=== PATIENT | female | born 1990 | race Caucasian/White ===

== ENCOUNTER 2016-08-03 13:23 | Emergency (ER) | payer BC ==
[~2016-08-03] VITALS: Ht 170.2 cm; Wt 111.4 kg
[~2016-08-03 13:23] MED LIST: OXYC1TAB3 PO
[2016-08-03 13:26] VITALS: TEMP 36.8; Ht 170.2 cm; Wt 111.4 kg
[2016-08-03] MEDS ORDERED: HYDR-5688 PO (14:02)
[2016-08-03] MEDS ORDERED: CLIN300C2 PO (14:02)
--- NOTE | 2016-08-03 14:04 | EMERGENCY ROOM VISIT NOTE ---
ED Visit Note First contact with patient: 13:46 CHIEF COMPLAINT: Toothache. HISTORY OF PRESENT ILLNESS: This is a 25-year-old white female who ambulates into the complaining of dental pain. She reports a progressive dental pain for the last 3 days over the right mandible. The pain is now steady and severe and radiates to the face. She has been using Tylenol and ibuprofen but has had not had relief of her discomfort. Currently she is complaining of pain in the area of tooth . She rates her discomfort 9/10. Her. pain does radiate through the teeth. Her pain worsens with chewing and hot and cold foods. She has not identified any alleviating factors related to the pain. She denies any associated symptoms including fevers , chills, sweats, facial swelling, sore throat, difficulty swallowing, voice changes, drooling. The patient has a history of infection and pain in this tooth. She states that she has not been able to find a dentist that she can afford. REVIEW OF SYSTEMS: As noted above in History of Present Illness. 8 body systems were reviewed with this patient and found to be negative unless noted above otherwise. PMH: . Patient denies CURRENT MEDICATION: . Patient denies ALLERGIES TO MEDICATION: Penicillin SOCIAL HISTORY: The patient lives locally. She is employed PHYSICAL EXAM: Vital Signs: Temperature 36.8C orally General: This is a 25 year-old white female in mild distress due to pain, nontoxic appearing, afebrile and hemodynamically stable. Neurological: Awake, alert and oriented to person, place and time. Answering questions appropriately and following commands. Normal gait. Good hand eye coordination. No focal motor or sensory deficits. Skin: Warm, dry and pink. No soft tissue lesions, rashes, or trauma noted. HEENT: Atraumatic and normocephalic. Oral cavity is moist and pink. Airway is patent. Uvula is midline and no abscesses are seen. Airway is patent. Speech is normal. No drooling. No intraoral trauma is noted. The right upper molar is broken. No abscesses, erythema or edema identified. No cervical or submandibular lymphadenopathy. The patient has had trouble with this tooth in the past. She states she cannot afford to see a dentist. She is afebrile and nontoxic in appearance. She does not have any significant facial swelling. The patient was advised that she must follow-up with a dentist for definitive management. She'll be placed on clindamycin and given a very small prescription for [place]. She should return with any worsening symptoms. Problem List Medical Problems: (1) Back pain Status: Resolved (2) Back pain Status: Resolved (3) Patella-femoral syndrome Status: Chronic (4) Right ankle sprain Status: Resolved Current/Historical Medications Scheduled Clindamycin Hcl (Cleocin), 300 MG PO QID Scheduled PRN Hydrocodone/Acetaminophen 5MG/325MG ([place] 5MG/325MG), 1-2 TABLET PO Q6 PRN for Pain Allergies Coded Allergies: Penicillins (Unverified Allergy, Severe, as child-HIVES, 08/03/16) BEE STING (Verified Allergy, Unknown, ., 08/03/16) Vital Signs Date Time Temp Pulse Resp B/P Pulse Ox O2 Delivery O2 Flow Rate FiO2 08/03/16 14:10 82 149/72 98 08/03/16 13:26 36.8 85 16 150/70 97 Room Air Departure Information Impression Primary Impression: Dental caries Dispostion Home / Self-Care Condition GOOD Prescriptions Hydrocodone/Acetaminophen 5MG/325MG ([place] 5MG/325MG) Tab 1-2 TABLET PO Q6 Y for Pain, #20 TAB For Initial Treatment Prov: Olga Olivares PA-C 08/03/16 Clindamycin Hcl (CLEOCIN) 300 Mg Cap 300 MG PO QID for 7 Days, #28 CAP Prov: Olga Olivares PA-C 08/03/16 Referrals No Doctor, Assigned (PCP) Patient Instructions [facility] Additional Instructions Clindamycin 4 times daily for 10 days.[place] one tablet every 6 hours if needed for worse pain. Do not drink or drive while taking [place] and do not take with Tylenol. Followup with a dentist for definitive management of your tooth. Return with high fevers, worsening pain or swelling.
[2016-08-03 14:10] VITALS: BP 149/72; PULSE 82; O2SAT 98
== END 2016-08-03 14:15 | disposition home or self-care (01) ==
LOC: C.EDB 13:25 → C.EDD 14:15
DX: K02.9 Dental caries, unspecified (principal); Z88.0 Allergy status to penicillin; Z91.030 Bee allergy status

== ENCOUNTER 2016-11-21 11:44 | Emergency (ER) | payer BC ==
[~2016-11-21 11:44] MED LIST changes: +HYDR-5688 PO; -OXYC1TAB3 PO
[2016-11-21 11:49] VITALS: TEMP 37.1; Ht 170.2 cm
--- NOTE | 2016-11-21 12:25 | DIAGNOSTIC IMAGING REPORT ---
RIGHT KNEE 3 VIEWS HISTORY: Knee pain Right COMPARISON: None. FINDINGS: There is no fracture or dislocation. Soft tissues are unremarkable. No radiopaque foreign bodies. No knee effusions. IMPRESSION: No fractures. Electronically signed by: Carlos Jalloh M.D. 11/21/2016 12:23 PM Dictated Date/Time: 11/21/2016 12:22 PM
--- NOTE | 2016-11-21 12:46 | EMERGENCY ROOM VISIT NOTE ---
ED Visit Note First contact with patient: 12:02 CHIEF COMPLAINT: Right knee pain HISTORY OF PRESENT ILLNESS: This 25-year-old female presents the ER with chief complaint of right knee pain. The patient denies any injury to the right knee. The patient does admit that she stands and walks for long hours at work. She is a lead sustainability specialist. The patient states that it hurts to straighten her leg. The patient denies any giving out or locking of the knee. The patient does admit that when she was younger she had patellofemoral syndrome but that was 10 years ago and she has not had any problems since that time. REVIEW OF SYSTEMS: 6 system review was performed and was negative unless stated otherwise in history of present illness. PMH: The patient is healthy; patellofemoral syndrome SOCIAL HISTORY: Patient admits to tobacco use and occasional alcohol use. PHYSICAL EXAM: Vital Signs: Were reviewed Reviewed Nurse's notes. GENERAL: 25- year-old white female appears in no acute distress. MENTAL STATUS: Alert, oriented, and cooperative. RIGHT KNEE: Generalized swelling of the knee. The patient's tenderness palpation over the lateral joint space. She is also tender in the popliteal region. There is no joint effusion. The range of motion is limited secondary to pain. There is no ligamentous instability. The skin is normal and intact. The patient walks with an antalgic gait. EMERGENCY DEPARTMENT COURSE: The patient was evaluated. The patient just took Midol prior to coming to the ER. She drove herself therefore no additional pain medications were given. X-ray of the right knee was ordered and interpreted by the radiologist and myself. DIAGNOSTICS:RIGHT KNEE 3 VIEWS HISTORY: Knee pain Right COMPARISON: None. FINDINGS: There is no fracture or dislocation. Soft tissues are unremarkable. No radiopaque foreign bodies. No knee effusions. IMPRESSION: No fractures. Electronically signed by: Carlos Jalloh M.D. 11/21/2016 12:23 PM Dictated Date/Time: 11/21/2016 12:22 PM The patient was informed of the findings. The patient was placed in Vu wrap. The patient has crutches at home to aid in ambulation. The patient was given a [employer] home pack. The patient was discharged home in stable condition. DIAGNOSIS: Right knee pain DISCHARGE INSTRUCTIONS: Ice and elevation as much as possible over the next 24 hours. Ibuprofen 600 mg every 6 hours with food for pain. Take [place] as needed for more severe pain. Do not drive while taking the [place]. Wear Vu wrap and use crutches to aid in ambulation until evaluated by orthopedics. Call [facility] orthopedics if symptoms are not improving in 2-3 days. If symptoms worsen in the interim, return to ER. Problem List Medical Problems: (1) Back pain Status: Resolved (2) Back pain Status: Resolved (3) Patella-femoral syndrome Status: Chronic (4) Right ankle sprain Status: Resolved Current/Historical Medications No Active Prescriptions or Reported Meds Allergies Coded Allergies: Penicillins (Unverified Allergy, Severe, as child-HIVES, 11/21/16) BEE STING (Verified Allergy, Unknown, ., 11/21/16) Vital Signs Date Time Temp Pulse Resp B/P (MAP) Pulse Ox O2 Delivery O2 Flow Rate FiO2 11/21/16 11:49 37.1 89 20 137/95 98 Room Air Departure Information Prescriptions No Active Prescriptions or Reported Meds Referrals No Doctor, Assigned (PCP) Patient Instructions [facility] [employer]
[2016-11-21] MEDS ORDERED: HYDR-5688 PO (12:48)
[2016-11-21] MEDS ORDERED: NORCO 5/325MG HOME PACK PO ONE (13:00)
[2016-11-21 13:11] VITALS: BP 121/89; PULSE 69; O2SAT 95
== END 2016-11-21 13:13 | disposition home or self-care (01) ==
LOC: C.EDB 11:50 → C.EDD 13:13
DX: M25.561 Pain in right knee (principal); M25.461 Effusion, right knee

== ENCOUNTER 2017-03-07 19:48 | Emergency (ER) | payer BC ==
[~2017-03-07] VITALS: Ht 170.2 cm; Wt 110.1 kg
[2017-03-07 19:50] VITALS: TEMP 37.1; Ht 170.2 cm; Wt 110.1 kg
[2017-03-07] MEDS ORDERED: KETOROLAC TROMETHAMINE 30 MG/ML VIAL IV STA (20:03)
[2017-03-07 20:33] LABS: BASO % 0.4 %; BASO ABS # 0.03 K/uL (0-0.2); COMPLETE YES; EOS % 2.5 %; HEMATOCRIT 45.8 % (37-47); IG% 0.2 %; LYMPH % 24.1 %; LYMPH ABS # 2.03 K/uL (1.2-3.4); MEAN CELL VOLUME 88.4 fL (80-100); MEAN CORPUSCULAR HEMOGLOBIN 30.3 pg (25-34); MEAN CORPUSCULAR HGB CONC 34.3 g/dl (32-36); NEUT % 64.8 %; PLATELET COUNT 211 K/uL (130-400); RED BLOOD COUNT 5.18 M/uL (4.2-5.4); WHITE BLOOD COUNT 8.42 K/uL (4.8-10.8)
[2017-03-07 20:41] LABS: MANUAL MICROSCOPIC REQUIRED? YES; URINE APPEARANCE CLEAR (CLEAR); URINE BILIRUBIN NEG (NEG); URINE COLOR YELLOW; URINE NITRITE NEG (NEG); URINE PH 6.5 (4.5-7.5); UROBILINOGEN NEG (NEG)
[2017-03-07 20:43] LABS: REVIEW REQ? NO
[2017-03-07 20:48] LABS: URINE BACTERIA 1+ (NEG); URINE RBC 0-4 /hpf (0-4); ZZUR CULT IF INDIC CLEAN CATCH YES
--- NOTE | 2017-03-07 20:55 | DIAGNOSTIC IMAGING REPORT ---
ABD/PELVIS WITHOUT FOR STONE CT DOSE: 1690.63 mGy.cm HISTORY: Flank pain left flank pain TECHNIQUE: Multiaxial CT images of the abdomen and pelvis were performed without the use of intravenous and oral contrast according to the standard department stone protocol. A dose lowering technique was utilized adhering to the principles of ALARA. COMPARISON STUDY: None. FINDINGS: Lung bases are clear. Liver spleen and pancreas are unremarkable. Several benign hepatic granulomas are present. There are several benign splenic calcified granulomas. Pancreas is uniform throughout. Kidneys negative for hydronephrosis. The adrenal glands are normal. There is no evidence for an obstructing urinary tract calculus. Bowel pattern is nonobstructive. The appendix is normal. Bladder is midline. Uterus is anteflexed. There is 2.5 cm complex and a partially hemorrhagic left ovarian cyst. There is no significant free fluid within the pelvic cul-de-sac. IMPRESSION: 1. No evidence for an obstructing urinary tract calculus. 2. 2.5 cm partially hemorrhagic and/or slightly complex left ovarian cyst. 3. Otherwise negative study. The above report was generated using voice recognition software. It may contain grammatical, syntax or spelling errors. Electronically signed by: Derek Otoole M.D. 03/07/2017 8:53 PM Dictated Date/Time: 03/07/2017 8:50 PM
[2017-03-07 21:10] LABS: ALT/SGPT 34 U/L (12-78); AST/SGOT 14 U/L (15-37); BLOOD UREA NITROGEN 14 mg/dl (7-18); BUN/CREATININE RATIO 16.4 (10-20); CALCIUM 8.7 mg/dl (8.5-10.1); CARBON DIOXIDE 26 mmol/L (21-32); CHLORIDE 105 mmol/L (98-107); CREATININE 0.84 mg/dl (0.60-1.20); GLUCOSE 90 mg/dl (70-99); SODIUM 139 mmol/L (136-145)
[2017-03-07 21:12] LABS: ALKALINE PHOSPHATASE 62 U/L (45-117)
[2017-03-07] MEDS ORDERED: NITR-5 PO (21:18)
--- NOTE | 2017-03-07 21:19 | EMERGENCY ROOM VISIT NOTE ---
History First contact with patient: 19:55 Chief Complaint: FLANK PAIN Stated Complaint: SEVERE L SIDE AND CHEST PAIN History of Present Illness The patient is a 26 year old female who presents to the Emergency Room with complaints of left flank pain which started 3 days ago. The patient also states that she has to strain in order to urinate but denies any dysuria, frequency or hematuria. The patient denies any vaginal discharge or fever. The patient admits to transient slight nausea but denies any vomiting. The patient denies any history of kidney stones. The patient admits to having a kidney infection in the past. The patient states there is a possibility of . Review of Systems 10 system review was performed and was negative unless stated otherwise history of present illness. Past Medical/Surgical History Medical Problems: (1) Back pain (2) Back pain (3) Patella-femoral syndrome (4) Right ankle sprain Family History Diabetes mellitus FH: cancer Hypertension Lung disease Social History Smoking Status: Current Every Day Smoker Alcohol Use: occasionally Marital Status: single Housing Status: lives with family Occupation Status: employed Current/Historical Medications No Active Prescriptions or Reported Meds Physical Exam Vital Signs Date Time Temp Pulse Resp B/P (MAP) Pulse Ox O2 Delivery O2 Flow Rate FiO2 03/07/17 19:50 37.1 96 20 134/87 96 Room Air Physical Exam GENERAL: 26-year-old white female appears in no acute distress. MENTAL Status: Alert and oriented 3. MOUTH: Mucosa is moist NECK: Supple, no lymphadenopathy noted. No carotid bruits noted. LUNGS: Clear auscultation without wheezes rales or rhonchi. CARDIAC: Regular rate and rhythm without murmur. Pulses is full and equal throughout. BACK: No CVA tenderness noted. ABDOMEN: Positive bowel sounds all 4 quadrants. Soft, mild tenderness palpation in the left flank area and suprapubic region otherwise nontender to palpation without organomegaly or masses. EXTREMITIES: No cyanosis or edema noted. Medical Decision & Procedures ER Provider Diagnostic Interpretation: ABD/PELVIS WITHOUT FOR STONE CT DOSE: 1690.63 mGy.cm HISTORY: Flank pain left flank pain TECHNIQUE: Multiaxial CT images of the abdomen and pelvis were performed without the use of intravenous and oral contrast according to the standard department stone protocol. A dose lowering technique was utilized adhering to the principles of ALARA. COMPARISON STUDY: None. FINDINGS: Lung bases are clear. Liver spleen and pancreas are unremarkable. Several benign hepatic granulomas are present. There are several benign splenic calcified granulomas. Pancreas is uniform throughout. Kidneys negative for hydronephrosis. The adrenal glands are normal. There is no evidence for an obstructing urinary tract calculus. Bowel pattern is nonobstructive. The appendix is normal. Bladder is midline. Uterus is anteflexed. There is 2.5 cm complex and a partially hemorrhagic left ovarian cyst. There is no significant free fluid within the pelvic cul-de-sac. IMPRESSION: 1. No evidence for an obstructing urinary tract calculus. 2. 2.5 cm partially hemorrhagic and/or slightly complex left ovarian cyst. 3. Otherwise negative study. The above report was generated using voice recognition software. It may contain grammatical, syntax or spelling errors. Electronically signed by: Derek Otoole M.D. 03/07/2017 8:53 PM Dictated Date/Time: 03/07/2017 8:50 PM Laboratory Results 03/07/17 20:12 Red Blood Count 5.18, Mean Corpuscular Volume 88.4, Mean Corpuscular Hemoglobin 30.3, Mean Corpuscular Hemoglobin Concent 34.3, Mean Platelet Volume 11.0, Neutrophils (%) (Auto) 64.8, Lymphocytes (%) (Auto) 24.1, Monocytes (%) (Auto) 8.0, Eosinophils (%) (Auto) 2.5, Basophils (%) (Auto) 0.4, Neutrophils # (Auto) 5.46, Lymphocytes # (Auto) 2.03, Monocytes # (Auto) 0.67, Eosinophils # (Auto) 0.21, Basophils # (Auto) 0.03 03/07/17 20:12 Test 03/07/17 20:12 White Blood Count 8.42 K/uL (4.8-10.8) Red Blood Count 5.18 M/uL (4.2-5.4) Hemoglobin 15.7 g/dL (12.0-16.0) Hematocrit 45.8 % (37-47) Mean Corpuscular Volume 88.4 fL (80-100) Mean Corpuscular Hemoglobin 30.3 pg (25-34) Mean Corpuscular Hemoglobin Concent 34.3 g/dl (32-36) Platelet Count 211 K/uL (130-400) Mean Platelet Volume 11.0 fL (7.4-10.4) Neutrophils (%) (Auto) 64.8 % Lymphocytes (%) (Auto) 24.1 % Monocytes (%) (Auto) 8.0 % Eosinophils (%) (Auto) 2.5 % Basophils (%) (Auto) 0.4 % Neutrophils # (Auto) 5.46 K/uL (1.4-6.5) Lymphocytes # (Auto) 2.03 K/uL (1.2-3.4) Monocytes # (Auto) 0.67 K/uL (0.11-0.59) Eosinophils # (Auto) 0.21 K/uL (0-0.5) Basophils # (Auto) 0.03 K/uL (0-0.2) RDW Standard Deviation 44.1 fL (36.4-46.3) RDW Coefficient of Variation 13.6 % (11.5-14.5) Immature Granulocyte % (Auto) 0.2 % Immature Granulocyte # (Auto) 0.02 K/uL (0.00-0.02) Urine Color YELLOW Urine Appearance CLEAR (CLEAR) Urine pH 6.5 (4.5-7.5) Urine Specific [place] 1.020 (1.000-1.030) Urine Protein NEG (NEG) Urine Glucose (UA) NEG (NEG) Urine Ketones NEG (NEG) Urine Occult Blood NEG (NEG) Urine Nitrite NEG (NEG) Urine Bilirubin NEG (NEG) Urine Urobilinogen NEG (NEG) Urine Leukocyte Esterase SMALL (NEG) Urine RBC 0-4 /hpf (0-4) Urine WBC 10-30 /hpf (0-5) Urine Epithelial Cells >30 /lpf (0-5) Urine Bacteria 1+ (NEG) Anion Gap 8.0 mmol/L (3-11) Est Creatinine Clear Calc Drug Dose 132.1 ml/min Estimated GFR () 112.7 Estimated GFR (Non- 97.3 BUN/Creatinine Ratio 16.4 (10-20) Calcium Level 8.7 mg/dl (8.5-10.1) Total Bilirubin 0.5 mg/dl (0.2-1) Direct Bilirubin < 0.1 mg/dl (0-0.2) Aspartate Amino Transf (AST/SGOT) 14 U/L (15-37) Alanine Aminotransferase (ALT/SGPT) 34 U/L (12-78) Alkaline Phosphatase 62 U/L (45-117) Total Protein 7.2 gm/dl (6.4-8.2) Albumin 3.6 gm/dl (3.4-5.0) Lipase 98 U/L (73-393) Medications Administered Medications (Trade) Dose Ordered Sig/Mario Route Start Time Stop Time Status Last Admin Dose Admin Ketorolac Tromethamine (Toradol Inj) 30 mg NOW STAT IV 03/07/17 20:03 03/07/17 20:06 DC 03/07/17 20:20 30 MG ED Course The patient was evaluated. The patient's EMR medication list were reviewed. IV access was obtained. CBC and differential, renal profile, LFTs and lipase levels were ordered. Urinalysis was ordered. Urine for was ordered. The patient was given Toradol 30 mg IV for pain. CT stone study was ordered and interpreted by the radiologist and myself as above with no evidence of renal calculi. There was finding of a 2.5 cm left ovarian cyst. Labs are reviewed and were unremarkable. Urinalysis revealed +1 bacteria but there was also a lot of epithelial cells we will prophylactically treat with Macrobid. The patient was informed of all findings. She was reevaluated on several occasions throughout ER stay was resting comfortably. The patient was discharged home in stable condition. Medical Decision Differential diagnosis include ureteral calculi, pyelonephritis, UTI, diverticulitis, ovarian cyst, ovarian torsion [place] Drug Monitoring Program Search Results: patient reviewed within database Medication Reconcilliation Current Medication List: was personally reviewed by me Blood Pressure Screening Patient's blood pressure: Normal blood pressure Impression Primary Impression: Left flank pain Additional Impression: Urinary tract infection Departure Information Dispostion Home / Self-Care Condition GOOD Prescriptions Nitrofurantoin Monohyd Macrocr (Macrobid) 100 Mg Cap 100 MG PO BID for 7 Days, #14 CAP Prov: Roseanne Otoole PA-C 03/07/17 Referrals No Doctor, Assigned (PCP) Forms HOME CARE DOCUMENTATION FORM, IMPORTANT VISIT INFORMATION Patient Instructions My [employer] Additional Instructions Push fluids. Take Macrobid as prescribed. Call in 36 hours for urine culture results. If you experience any uncontrolled nausea, vomiting, fevers or severe abdominal pain return to ER immediately. Follow-up with your family doctor in 2 days for recheck. Problem Qualifiers Additional Impression: Urinary tract infection Urinary tract infection type: acute cystitis Hematuria presence: without hematuria Qualified Codes: N30.00 - Acute cystitis without hematuria
[2017-03-07 21:25] VITALS: BP 140/75; PULSE 78; O2SAT 98
== END 2017-03-07 21:26 | disposition home or self-care (01) ==
LOC: C.EDB 19:48 → C.EDC 21:26
DX: N39.0 Urinary tract infection, site not specified (principal); N83.202 Unspecified ovarian cyst, left side; F17.210 Nicotine dependence, cigarettes, uncomplicated; Z83.3 Family history of diabetes mellitus; Z80.9 Family history of malignant neoplasm, unspecified; Z82.49 Family history of ischemic heart disease and other diseases of the circulatory system

== ENCOUNTER 2017-05-22 16:29 | Emergency (ER) | payer BC ==
[~2017-05-22] VITALS: Ht 170.2 cm; Wt 106.5 kg
[2017-05-22 16:35] VITALS: BP 135/93; PULSE 73; TEMP 37; O2SAT 98; Ht 170.2 cm; Wt 106.5 kg
[2017-05-22] MEDS ORDERED: NAPR1TAB9 PO (16:56)
[2017-05-22] MEDS ORDERED: AZITTAB PO (16:58)
[2017-05-22] MEDS ORDERED: ALBUTEROL HFA 8 GM INHALER INH STA (16:58)
--- NOTE | 2017-05-22 17:05 | EMERGENCY ROOM VISIT NOTE ---
History First contact with patient: 16:38 Chief Complaint: CONGESTION Stated Complaint: BRONCHITIS, EAR TOOTH ACHE Nursing Triage Summary: Patient presents with c/o nasal congestion, productive cough, ear pain, and right upper maxillary dental pain Symptoms began 2 days ago History of Present Illness The patient is a 26 year old female who presents to the Emergency Room with complaints of a productive cough, sinus congestion, sore throat, right ear pain and right upper dental pain. The patient reports that her cold symptoms started approximately 36 hours ago, and have slightly worsened. She has taken Robitussin-DM, DayQuil, Aleve and Tylenol with minimal relief. The patient denies any fevers or chills. She does report a history of dental problems, and has a right maxillary molar that needs extracted. She currently does not have a dentist or family doctor. She does have insurance, but has not found a local family doctor at this time. The patient does smoke one half to one pack of cigarettes daily. She reports getting bronchitis yearly. She rates her overall discomfort a 5 out of 10 on my exam. Review of Systems 10 system review was performed and was negative except for pertinent positives and negatives as indicated in history of present illness Past Medical/Surgical History Medical Problems: (1) Back pain (2) Back pain (3) Patella-femoral syndrome (4) Right ankle sprain Family History Diabetes mellitus FH: cancer Hypertension Lung disease Social History Smoking Status: Current Every Day Smoker Alcohol Use: occasionally Marital Status: single Housing Status: lives with family Occupation Status: employed Current/Historical Medications Scheduled Azithromycin (Zithromax Z-Robinson), 0 PO UD Scheduled PRN Naproxen (Aleve), 220-440 MG PO DIRECTED PRN for Pain Physical Exam Vital Signs Date Time Temp Pulse Resp B/P (MAP) Pulse Ox O2 Delivery O2 Flow Rate FiO2 05/22/17 16:35 37.0 73 16 135/93 98 Room Air Physical Exam CONSTITUTIONAL: Healthy and well nourished. Alert and oriented X 3 with positive affect. Patient does not appear acutely or toxic. She has a minimal nonproductive cough. HEENT: Normocephalic, atraumatic. Pupils equal, round and reactive. Examination of the right ear shows TM bulging without air-fluid levels, erythema or effusion. Bony landmarks and light reflex are present. Examination of left ear is also normal. Mild clear rhinorrhea is noted. No tenderness to palpation or percussion of the frontal or maxillary sinuses. OROPHARYNX: Minimal posterior frontal erythema without tonsillar hypertrophy, exudates or postnasal drainage. NECK: Full active range of motion without discomfort. LYMPHATICS: No cervical chain adenopathy. RESPIRATORY: Clear to auscultation bilaterally with no wheezing, crackles, rhonchi or stridor. CARDIOVASCULAR: Regular rate and rhythm with no murmurs, rubs or gallops. MUSCULOSKELETAL: Full range of motion of all joints without discomfort. INTEGUMENTARY: No rash or other significant dermatologic conditions noted. NEUROLOGIC: No focal neurologic deficits noted. Medical Decision & Procedures ED Course Patient history and physical exam were performed. Nurse's notes were reviewed. Vital signs were reviewed and were normal. The patient was advised that she is in a viral phase of an upper respiratory infection. The patient was advised that symptoms usually worsen for the first 3-4 days before improvement. The patient was administered an albuterol metered-dose inhaler with AeroChamber, and instructions for its use to help with her cough, which the patient reports is her worst symptom. The patient reports that she has used an inhaler in the past with good relief of cough. She was also encouraged to take a good decongestant like Sudafed for sinus congestion. She was encouraged to alternate ibuprofen and Tylenol for pain and fever. The patient was provided a written prescription for a Z-Robinson should her cough progressively worsen. She was again reminded that antibiotics are not effective against viruses. Regarding her dental issues, she was provided contact information for Dr. Baxter. She was also encouraged to call the number on the back of her insurance card in order to find a local family doctor who accepts her insurance. The patient voiced understanding of all discharge instructions, was happy with plan of care, and rated her overall discomfort a 3 out of 10 at the time of discharge. Medical Decision Medication Reconcilliation Current Medication List: was personally reviewed by me Blood Pressure Screening Patient's blood pressure: Normal blood pressure Impression Primary Impression: Viral URI with cough Departure Information Dispostion Home / Self-Care Prescriptions Azithromycin (ZITHROMAX Z-ROBINSON) 250 Mg Tab 0 PO UD, #1 PKT 2 TABS DAY 1, THEN 1 TAB DAILY FOR 4 DAYS Prov: Haresh Flores PA 05/22/17 Referrals Dru BaxterD. Forms HOME CARE DOCUMENTATION FORM, IMPORTANT VISIT INFORMATION Patient Instructions My [facility] Additional Instructions Administer albuterol 2 puffs every 4-6 hours. Continue with Robitussin-DM for additional cough relief. Suggest also taking Sudafed or other decongestant for your sinus congestion. Ibuprofen or Tylenol as needed for pain/fever. If your symptoms progressively worsen after 4-5 days of illness, take the Zithromax antibiotics as prescribed. Call the number on the back of your insurance card to find a local family doctor. Suggest calling Dr. Baxter, dentist, to see if they accept your insurance for dental management.
== END 2017-05-22 17:03 | disposition home or self-care (01) ==
LOC: C.EDB 16:30 → C.EDD 17:03
DX: J06.9 Acute upper respiratory infection, unspecified (principal); R05 Cough; F17.210 Nicotine dependence, cigarettes, uncomplicated; Z83.3 Family history of diabetes mellitus; Z80.9 Family history of malignant neoplasm, unspecified; Z82.49 Family history of ischemic heart disease and other diseases of the circulatory system; Z83.6 Family history of other diseases of the respiratory system